=== PATIENT | male | born 1965 | race Caucasian/White ===

== ENCOUNTER 2019-01-20 07:37 | Emergency (ER) | payer SELFPAY ==
[2019-01-20] MEDS ORDERED: Ketorolac Tromethamine 60 MG/2 ML VIAL ONE (08:34)
--- NOTE | 2019-01-20 14:36 | RAD ---
THORACIC SPINE 3 VIEWS: DATE: 01/20/2019. FINDINGS: Anterior osteophytes are seen at most thoracic levels, most prominent as one travels inferiorly. No fracture or disk space narrowing was evident. The thoracolumbar junction is not seen optimally. IMPRESSION: Degenerative changes, but no acute findings. POS: HOME
== END 2019-01-20 08:42 | disposition home or self-care (01) ==
LOC: BURERS 07:37
DX: S20.229A Contusion of unspecified back wall of thorax, initial encounter (principal); M54.14 Radiculopathy, thoracic region; F17.290 Nicotine dependence, other tobacco product, uncomplicated; W17.89XA Other fall from one level to another, initial encounter
CPT/HCPCS: 72072; 96372; J1885

== ENCOUNTER 2019-03-01 09:25 | Emergency (ER) | payer OTHER | END 2019-03-01 09:45 | disposition home or self-care (01) | LOC: BURERS 09:25 | DX: M17.0 Bilateral primary osteoarthritis of knee (principal); I10 Essential (primary) hypertension; F17.290 Nicotine dependence, other tobacco product, uncomplicated; Z79.899 Other long term (current) drug therapy | CPT/HCPCS: 99283 ==

== ENCOUNTER 2019-03-08 13:39 | Emergency (ER) | payer OTHER ==
[2019-03-08] MEDS ORDERED: Ketorolac Tromethamine 30 MG/ML VIAL ONE (14:02)
== END 2019-03-08 14:13 | disposition home or self-care (01) ==
LOC: BURERS 13:39
DX: S39.012A Strain of muscle, fascia and tendon of lower back, initial encounter (principal); F17.290 Nicotine dependence, other tobacco product, uncomplicated; X50.9XXA Other and unspecified overexertion or strenuous movements or postures, initial encounter
CPT/HCPCS: 96372; 99283; J1885

== ENCOUNTER 2019-04-20 11:02 | Emergency (ER) | payer OTHER ==
[2019-04-20] MEDS ORDERED: methylPREDNISolone Sod Succ/PF 125 MG/2 ML VIAL ONE (11:43)
== END 2019-04-20 12:36 | disposition home or self-care (01) ==
LOC: BURERS 11:02
DX: S39.012A Strain of muscle, fascia and tendon of lower back, initial encounter (principal); M54.10 Radiculopathy, site unspecified; Z71.6 Tobacco abuse counseling; I10 Essential (primary) hypertension; F32.9 Major depressive disorder, single episode, unspecified; F17.290 Nicotine dependence, other tobacco product, uncomplicated; F17.210 Nicotine dependence, cigarettes, uncomplicated; X50.1XXA Overexertion from prolonged static or awkward postures, initial encounter; Y92.096 Garden or yard of other non-institutional residence as the place of occurrence of the external cause
CPT/HCPCS: 96372; 99406; J2930

== ENCOUNTER 2019-05-18 12:25 | Emergency (ER) | payer OTHER ==
[2019-05-18 13:04] LABS: Bilirubin Negative (Negative); Blood, Urine Trace (Negative); Clarity Clear (Clear); Glucose, Urine (Dipstick) Negative (Negative); Leukocyte Negative (Negative); Nitrite Negative (Negative); Protein, Urine (Dipstick) Negative (Neg-Trace); Urobilinogen 0.2 mg/dL (Less than 2)
[2019-05-18 13:07] LABS: Bacteria/HPF None Seen HPF (None Seen); Broad Cast None Seen LPF (None Seen); Calcium Oxalate Crystals None Seen HPF (None Seen); Cellular Cast None Seen LPF (None Seen); Epithelial Cast None Seen LPF (None Seen); Fatty Cast None Seen LPF (None Seen); Mucous/LPF None Seen LPF (<2+); Other Casts None Seen LPF (None Seen); Oval Fat Bodies/HPF None Seen HPF (None Seen); RBC/HPF 0-3 HPF (0-3); Red Blood Cell Cast None Seen LPF (None Seen); Renal Epithelial None Seen HPF (None Seen); Sperm/HPF None Seen HPF (None Seen); Squamous Epithelial None Seen HPF (0-3); Transitional Epithelial None Seen HPF (None Seen); Trichomonas/HPF None Seen HPF (None Seen); Triple Phosphate Crystal None Seen HPF (None Seen); Unclassified Crystals None Seen HPF (None Seen); WBC/HPF 0-3 HPF (0-3); Waxy Cast None Seen LPF (None Seen); White Blood Cell Cast None Seen LPF (None Seen); Yeast-Budding None Seen HPF (None Seen); Yeast-Hyphae None Seen HPF (None Seen)
[2019-05-18] MEDS ORDERED: Ketorolac Tromethamine 30 MG/ML VIAL ONE (13:08)
--- NOTE | 2019-05-18 14:46 | CT ---
CT ABDOMEN AND PELVIS WITHOUT CONTRAST: Date: 05/18/[address] of the abdomen and pelvis was done without oral or IV contrast by request to investigate ab dominal pain. FINDINGS: The lung bases are clear. The liver, spleen, pancreas, adrenal glands, kidneys, and abdominal aorta s how no acute findings within the limitations of a noncontrast study. The hepatic size seems minimally generous, but there was no abnormality seen within the liver. There is no sign of renal calculi, ure teral calculi, or hydronephrosis. There is no distention of any bowel. There is some equivocal thickening of the wall of the transverse colon. Mild colitis might be a possibility. The appendix was identified and appears normal. A rare d iverticulum is seen in the colon. There are no findings of diverticulitis, free air, or free fluid. CT of the pelvis shows no pelvic masses, fluid collections, or inflammatory changes. A fat-filled rig ht inguinal hernia was noted. IMPRESSION: Equivocal mild thickening of the transverse colon. Not mentioned above, but I would note the gallblad bryant is decompressed and hard to evaluate. Some slices made me wonder about tiny calcifications, but a n ultrasound would be needed to be sure. Findings discussed with Dr. Blankenship at 1357 hours on 05/18/2019. CODE CR. POS: HOME
== END 2019-05-18 14:22 | disposition home or self-care (01) ==
LOC: BURERS 12:25
DX: K52.9 Noninfective gastroenteritis and colitis, unspecified (principal); M54.5 Low back pain; I10 Essential (primary) hypertension; E78.5 Hyperlipidemia, unspecified; F32.9 Major depressive disorder, single episode, unspecified; F17.210 Nicotine dependence, cigarettes, uncomplicated
CPT/HCPCS: 74176; 81003; 81015; 87086; 96372; J1885

== ENCOUNTER 2019-06-17 10:01 | Emergency (ER) | payer OTHER ==
[2019-06-17] MEDS ORDERED: Adacel (T-DAP) 0.5 ML SYRINGE ONE (11:27)
--- NOTE | 2019-06-17 11:50 | RAD ---
LUMBAR SPINE 3 VIEWS: Date: 06/17/2019 No acute fracture was appreciated. The disc spaces are normal in height. Moderate degenerative change s are present throughout consisting of osteophytes and arthritic changes in some of the facet joints in the lower lumbar region. The SI joints are symmetrical. IMPRESSION: Degenerative change, but no acute finding. POS: HOME
--- NOTE | 2019-06-17 11:53 | RAD ---
RIGHT KNEE 4 VIEWS: Date: 06/17/2019 Medial joint space narrowing, osteophytes, and a bit of bony sclerosis is seen consistent with modera te osteoarthritis. There does appear to be a loose body in the joint seen based on the AP view adjace nt to the lateral femoral condyle. A small joint effusion is probably present. No fracture was eviden t. The patellofemoral joint showed advanced arthritic changes. IMPRESSION: Moderate osteoarthritis, but no fracture seen. POS: HOME
== END 2019-06-17 11:01 | disposition home or self-care (01) ==
LOC: BURERS 10:01
DX: S83.91XA Sprain of unspecified site of right knee, initial encounter (principal); I10 Essential (primary) hypertension; F32.9 Major depressive disorder, single episode, unspecified; F17.210 Nicotine dependence, cigarettes, uncomplicated; E78.5 Hyperlipidemia, unspecified; Z79.899 Other long term (current) drug therapy; W18.30XA Fall on same level, unspecified, initial encounter
CPT/HCPCS: 72100; 90715

== ENCOUNTER 2019-11-13 10:41 | Emergency (ER) | payer OTHER ==
[2019-11-13] MEDS ORDERED: Ketorolac Tromethamine 60 MG/2 ML VIAL ONE (11:13)
== END 2019-11-13 11:17 | disposition home or self-care (01) ==
LOC: BURERS 10:41
DX: M54.16 Radiculopathy, lumbar region (principal); I10 Essential (primary) hypertension; M19.90 Unspecified osteoarthritis, unspecified site; F32.9 Major depressive disorder, single episode, unspecified; F17.210 Nicotine dependence, cigarettes, uncomplicated; E78.5 Hyperlipidemia, unspecified; Z79.899 Other long term (current) drug therapy; X50.1XXA Overexertion from prolonged static or awkward postures, initial encounter
CPT/HCPCS: 96372; 99283; J1885

== ENCOUNTER 2020-01-16 12:55 | Emergency (ER) | payer OTHER ==
[2020-01-16] MEDS ORDERED: Ketorolac Tromethamine 30 MG/ML VIAL ONE (13:45)
[2020-01-16 13:51] LABS: #Basophils 0.1 thou/uL (0.0-0.2); #Lymphocytes 2.3 thou/uL (1.20-3.40); #Monocytes 0.9 thou/uL (0.11-0.59); %Basophils 0.6 % (0.0-1.0); %Eosinophils 0.2 % (0.0-10.0); %Lymphocytes 18.4 % (21.0-51.0); %Monocytes 7.5 % (0.0-10.0); %Neutrophils 73.3 % (42.0-75.0); Hemoglobin 16.8 g/dL (14.0-18.0); Mean Corpuscular HGB CONC 31.2 g/dL (32.0-36.0); Mean Corpuscular Hemoglobin 30.6 pg (27.0-31.0); Mean Corpuscular Volume 98.1 fL (78.0-98.0); Mean Platelet Volume 8.1 fL (7.4-10.4); Platelet Count 303 thou/uL (130-400); RBC Distribution Width 12.9 % (11.5-14.5); White Blood Cell (WBC) Count 12.2 thou/uL (4.8-10.8)
[2020-01-16 14:00] LABS: Bilirubin Negative (Negative); Blood, Urine Trace (Negative); Clarity Clear (Clear); Glucose, Urine (Dipstick) Negative (Negative); Ketone, Urine Negative (Negative); Leukocyte Negative (Negative); Nitrite Negative (Negative); Protein, Urine (Dipstick) Negative (Neg-Trace); Urobilinogen 0.2 mg/dL (Less than 2); pH, Urine 5.5 (5.0-9.0)
[2020-01-16 14:05] LABS: Bacteria/HPF Rare-Few HPF (None Seen); RBC/HPF 0-3 HPF (0-3); Squamous Epithelial None Seen HPF (0-3); WBC/HPF None Seen HPF (0-3)
[2020-01-16 14:15] LABS: BUN (Urea Nitrogen) 20 mg/dL (8.4-25.7); Calc. Creatinine Clearance 0 mL/min (70-130); Calcium 9.5 mg/dL (7.8-10.44); Carbon Dioxide 29 mmol/L (22-29); Chloride 96 mmol/L (98-107); Glucose 92 mg/dL (70-105); Potassium 3.9 mmol/L (3.5-5.1); Sodium 138 mmol/L (136-145)
[2020-01-16 14:16] LABS: ALT (SGPT) 29 U/L (8-55); AST (SGOT) 17 U/L (5-34); Albumin 4.7 g/dL (3.5-5.0); Alkaline Phosphatase 64 U/L (40-110); Bilirubin, Total 0.7 mg/dL (0.2-1.2); Globulin 4.2 g/dL (2.4-3.5); Protein, Total 8.9 g/dL (6.0-8.3)
[2020-01-16 14:17] LABS: Anion Gap 17 mmol/L (10-20)
--- NOTE | 2020-01-16 16:33 | CT ---
CT ABDOMEN AND PELVIS WITHOUT CONTRAST: Date: 01/16/2020 Comparison is made with the 05/18/2019 study. The lung bases are clear. The liver, spleen, pancreas, gallbladder, adrenal glands, kidneys, and abdominal aorta were unremarka ble in appearance within the limitations of a noncontrast study. The bowel shows no distention, wall thickening, or inflammatory change around it. The appendix appears normal. There is no free air or fr ee fluid present. A few scattered diverticula were present, but there was no signs of diverticulitis. CT of the pelvis shows no pelvic masses, fluid collections, or inflammatory changes. Mild to moderate degenerative changes are beginning in the facet joints of the lower lumbar spine. A fat-filled right inguinal hernia is present, which is probably of no current concern. IMPRESSION: No acute abdominal or pelvic findings. Preliminary report called to Teresa in the ER at 1400 hours on 01/16/2020. CODE CR. POS: HOME
== END 2020-01-16 14:50 | disposition home or self-care (01) ==
LOC: BURERS 12:55
DX: N50.812 Left testicular pain (principal); N50.811 Right testicular pain; I10 Essential (primary) hypertension; F32.9 Major depressive disorder, single episode, unspecified; F17.210 Nicotine dependence, cigarettes, uncomplicated; Z79.899 Other long term (current) drug therapy
CPT/HCPCS: 74176; 80053; 81003; 81015; 85025; 96374; 99406; J1885

== ENCOUNTER 2020-02-28 19:22 | Emergency (ER) | payer OTHER ==
[2020-03-01 09:11] LABS: SARS-CoV-2 MS2 Positive; SARS-CoV-2 N Gene Negative; SARS-CoV-2 S Gene Negative; SARS-CoV-2 by NAA Not Detected (NotDetected); SARS-CoV-2 orf1ab Negative
== END 2020-02-28 20:30 | disposition home or self-care (01) ==
LOC: BURERS 19:22
DX: Z20.822 Contact with and (suspected) exposure to COVID-19 (principal); Z79.899 Other long term (current) drug therapy; E78.5 Hyperlipidemia, unspecified; I10 Essential (primary) hypertension; F17.210 Nicotine dependence, cigarettes, uncomplicated
CPT/HCPCS: 87635; 99283; U0003

== ENCOUNTER 2020-03-18 12:47 | Emergency (ER) | payer OTHER ==
[2020-03-19 01:56] LABS: SARS-CoV-2 PCR by NAA Not Detected (NotDetected)
== END 2020-03-18 13:50 | disposition home or self-care (01) ==
LOC: BURERS 12:47
DX: B34.9 Viral infection, unspecified (principal); Z20.822 Contact with and (suspected) exposure to COVID-19; I10 Essential (primary) hypertension; M19.90 Unspecified osteoarthritis, unspecified site; F17.210 Nicotine dependence, cigarettes, uncomplicated; Z79.899 Other long term (current) drug therapy
CPT/HCPCS: 87635; 99283; U0003; U0005

== ENCOUNTER 2020-05-03 11:58 | Emergency (ER) | payer OTHER, SELFPAY ==
[2020-05-03] MEDS ORDERED: Ketorolac Tromethamine 60 MG/2 ML VIAL ONE (12:22)
== END 2020-05-03 12:28 | disposition home or self-care (01) ==
LOC: BURERS 11:58
DX: M54.16 Radiculopathy, lumbar region (principal); I10 Essential (primary) hypertension; F17.210 Nicotine dependence, cigarettes, uncomplicated
CPT/HCPCS: 96372; 99283; J1885

== ENCOUNTER 2020-06-15 14:55 | Emergency (ER) | payer OTHER | END 2020-06-15 15:10 | disposition home or self-care (01) | LOC: BURERS 14:55 | DX: M54.5 Low back pain (principal); I10 Essential (primary) hypertension; F17.210 Nicotine dependence, cigarettes, uncomplicated | CPT/HCPCS: 99281 ==

== ENCOUNTER 2020-08-13 12:35 | Emergency (ER) | payer OTHER ==
[2020-08-13] MEDS ORDERED: Ketorolac Tromethamine 60 MG/2 ML VIAL ONE (13:10)
== END 2020-08-13 13:43 | disposition home or self-care (01) ==
LOC: BURERS 12:35
DX: M51.36 Other intervertebral disc degeneration, lumbar region (principal); M51.26 Other intervertebral disc displacement, lumbar region; I10 Essential (primary) hypertension; F17.210 Nicotine dependence, cigarettes, uncomplicated; Z71.6 Tobacco abuse counseling
CPT/HCPCS: 72131; 96372; 99406; J1885

== ENCOUNTER 2021-02-28 13:08 | Emergency (ER) | payer OTHER ==
[2021-02-28] MEDS ORDERED: Ketorolac Tromethamine 30 MG/ML VIAL ONE (13:57)
== END 2021-02-28 14:40 | disposition home or self-care (01) ==
LOC: BURERS 13:08
DX: S46.002A Unspecified injury of muscle(s) and tendon(s) of the rotator cuff of left shoulder, initial encounter (principal); I10 Essential (primary) hypertension; F17.210 Nicotine dependence, cigarettes, uncomplicated; Z79.899 Other long term (current) drug therapy; W01.0XXA Fall on same level from slipping, tripping and stumbling without subsequent striking against object, initial encounter
CPT/HCPCS: 96372; J1885

== ENCOUNTER 2021-04-18 16:25 | Emergency (ER) | payer OTHER ==
[2021-04-18] MEDS ORDERED: predniSONE 20 MG TAB ONE (17:00)
[2021-04-19 23:42] LABS: SARS-CoV-2 PCR by NAA Not Detected (NotDetected)
== END 2021-04-18 17:42 | disposition home or self-care (01) ==
LOC: BURERS 16:25
DX: J44.1 Chronic obstructive pulmonary disease with (acute) exacerbation (principal); I10 Essential (primary) hypertension; F17.210 Nicotine dependence, cigarettes, uncomplicated; Z20.822 Contact with and (suspected) exposure to COVID-19
CPT/HCPCS: 99284; J7512; U0003; U0005

== ENCOUNTER 2021-04-27 14:46 | Emergency (ER) | payer OTHER ==
[2021-04-28 01:00] LABS: SARS-CoV-2 PCR by NAA Not Detected (NotDetected)
== END 2021-04-27 15:50 | disposition home or self-care (01) ==
LOC: BURERS 14:46
DX: R05.9 Cough, unspecified (principal); I10 Essential (primary) hypertension; F17.210 Nicotine dependence, cigarettes, uncomplicated; Z20.822 Contact with and (suspected) exposure to COVID-19
CPT/HCPCS: 99283; U0003; U0005

== ENCOUNTER 2021-06-04 15:15 | Emergency (ER) | payer OTHER ==
[2021-06-04 15:50] LABS: Bilirubin Negative (Negative); Blood, Urine Negative (Negative); Clarity Clear (Clear); Glucose, Urine (Dipstick) Negative (Negative); Ketone, Urine Negative (Negative); Leukocyte Negative (Negative); Nitrite Negative (Negative); Protein, Urine (Dipstick) Trace mg/dL (Neg-Trace); pH, Urine 8.5 (5.0-9.0)
[2021-06-04] MEDS ORDERED: Ibuprofen 800 MG TAB ONE (16:17)
[2021-06-04 16:21] LABS: #Basophils 0.1 thou/uL (0.0-0.2); #Eosinphils 0.1 thou/uL (0.0-0.7); #Monocytes 0.8 thou/uL (0.11-0.59); #Neutrophils 8.5 thou/uL (1.40-6.50); %Basophils 0.7 % (0.0-1.0); %Lymphocytes 17.4 % (21.0-51.0); %Monocytes 6.9 % (0.0-10.0); Hemoglobin 15.1 g/dL (14.0-18.0); Mean Corpuscular HGB CONC 30.9 g/dL (32.0-36.0); Mean Corpuscular Hemoglobin 31.1 pg (27.0-31.0); Mean Platelet Volume 7.7 fL (7.4-10.4); Platelet Count 249 thou/uL (130-400); RBC Distribution Width 14.6 % (11.5-14.5); Red Blood Cell (RBC) Count 4.85 mill/uL (4.70-6.10); White Blood Cell (WBC) Count 11.5 thou/uL (4.8-10.8)
[2021-06-04 16:39] LABS: ALT (SGPT) 43 U/L (8-55); AST (SGOT) 17 U/L (5-34); Albumin 4.1 g/dL (3.5-5.0); Alkaline Phosphatase 75 U/L (40-110); Anion Gap 16 mmol/L (10-20); BUN (Urea Nitrogen) 14 mg/dL (8.4-25.7); Bilirubin, Total 0.5 mg/dL (0.2-1.2); CK (CPK) 178 U/L (30-200); Calc. Creatinine Clearance 0 mL/min (70-130); Calcium 9.7 mg/dL (7.8-10.44); Carbon Dioxide 33 mmol/L (22-29); Chloride 96 mmol/L (98-107); Globulin 3.6 g/dL (2.4-3.5); Glucose 98 mg/dL (70-105); Potassium 4.4 mmol/L (3.5-5.1); Protein, Total 7.7 g/dL (6.0-8.3); Sodium 141 mmol/L (136-145)
== END 2021-06-04 17:26 | disposition home or self-care (01) ==
LOC: BURERS 15:15
DX: J44.1 Chronic obstructive pulmonary disease with (acute) exacerbation (principal); I10 Essential (primary) hypertension; F17.210 Nicotine dependence, cigarettes, uncomplicated
CPT/HCPCS: 36415; 71045; 80053; 81003; 82550; 83605; 85025; 86140; 87804

== ENCOUNTER 2022-01-20 20:13 | Emergency (ER) | payer OTHER ==
[2022-01-20] MEDS ORDERED: Magnesium 2 GM/50 ML BAG (IN WATER) ONE (20:37)
[2022-01-20] MEDS ORDERED: methylPREDNISolone Sod Succ/PF 125 MG/2 ML VIAL ONE (20:49)
[2022-01-20 21:09] LABS: #Basophils 0.2 thou/uL (0.0-0.2); #Eosinphils 0.2 thou/uL (0.0-0.7); #Lymphocytes 1.7 thou/uL (1.20-3.40); #Monocytes 0.8 thou/uL (0.11-0.59); #Neutrophils 8.2 thou/uL (1.40-6.50); %Basophils 1.6 % (0.0-1.0); %Eosinophils 1.6 % (0.0-10.0); %Lymphocytes 15.7 % (21.0-51.0); %Monocytes 7.5 % (0.0-10.0); %Neutrophils 73.6 % (42.0-75.0); Hemoglobin 15.8 g/dL (14.0-18.0); Mean Corpuscular HGB CONC 31.3 g/dL (32.0-36.0); Mean Corpuscular Hemoglobin 29.8 pg (27.0-31.0); Mean Corpuscular Volume 95.4 fl (78.0-98.0); Mean Platelet Volume 7.4 fL (7.4-10.4); Platelet Count 305 10x3/uL (130-400); RBC Distribution Width 15.4 % (11.5-14.5); Red Blood Cell (RBC) Count 5.29 mill/uL (4.70-6.10); White Blood Cell (WBC) Count 11.1 10x3/uL (4.8-10.8)
[2022-01-20 21:20] LABS: ALT (SGPT) 23 U/L (8-55); AST (SGOT) 19 U/L (5-34); Alkaline Phosphatase 75 U/L (40-110); Anion Gap 14 mmol/L (10-20); BUN (Urea Nitrogen) 17 mg/dL (8.4-25.7); Bilirubin, Total 0.5 mg/dL (0.2-1.2); Calc. Creatinine Clearance 0 mL/min (70-130); Calcium 9.3 mg/dL (7.8-10.44); Carbon Dioxide 39 mmol/L (22-29); Estimated GFR 81; Globulin 3.2 g/dL (2.4-3.5); Glucose 122 mg/dL (70-105); Protein, Total 7.2 g/dL (6.0-8.3)
[2022-01-20 21:24] LABS: Chloride 91 mmol/L (98-107); Potassium 5.4 mmol/L (3.5-5.1); Sodium 137 mmol/L (136-145)
[2022-01-20 21:30] LABS: Base Excess-Venous 7.1 mmol/L (-2.0 to 3.0); Bicarbonate (HCO3v) 40.4 mmol/L (22.0-28.0); CO2 Tension (PvCO2) 94.7 mmHg (42.0-51.0); Calcium, Ionized 1.18 mmol/L (1.15-1.33); Chloride 90 mmol/L (98-107); Hemoglobin - Calc 19.6 g/dL (14.0-18.0); Potassium 5.1 mmol/L (3.5-5.1); Sodium 138 mmol/L (138-145); T. Carbon Dioxide 43.3 mmol/L (22.0-28.0); vO2 Saturation-calc 93.9 % (60.0-85.0)
[2022-01-20] MEDS ORDERED: cefTRIAXone\\ROCEPHIN 2 GM VIAL ONE (21:38)
[2022-01-20] MEDS ORDERED: Albuterol Sulfate 2.5 mg/0.5 ml Neb ONE ×2 (21:38→23:03)
[2022-01-20] MEDS ORDERED: Sodium Chloride 0.9% 100 ML ONE (21:38)
[2022-01-20 22:06] LABS: SARS-CoV-2 NAA Rapid Test Not Detected (NotDetected)
[2022-01-20] MEDS ORDERED: Lorazepam 2 MG/ML VIAL ONE ×2 (22:15→23:42)
[2022-01-20] MEDS ORDERED: Rocuronium Bromide 10 MG/ML (10ML VIAL) ONE (23:42)
[2022-01-20] MEDS ORDERED: Ketamine 50 MG/ML (10ML VIAL) ONE (23:42)
[2022-01-20 23:44] LABS: Base Excess-Venous 0.7 mmol/L (-2.0 to 3.0); CO2 Tension (PvCO2) 78.2 mmHg (42.0-51.0); Calcium, Ionized 1.03 mmol/L (1.15-1.33); Chloride 94 mmol/L (98-107); Hemoglobin - Calc 18.6 g/dL (14.0-18.0); Potassium 5.7 mmol/L (3.5-5.1); Sodium 134 mmol/L (138-145); T. Carbon Dioxide 34.4 mmol/L (22.0-28.0); vO2 Saturation-calc 94.5 % (60.0-85.0)
[2022-01-21 03:56] LABS: Actual Bicarbonate (HCO3a) 31.9 mEq/L (22-28); Base Excess (BEa) 0.8 mEq/L (-2.0 to +3.0); Carboxyhemoglobin (COHb) 2.5 gm% (0.0-3.0); Hemoglobin (Hb) 14.8 g/dL (14.0-18.0); O2 Tension (PaO2), arterial 105.6 mmHg (80.0-100.0); Potassium - ABG Lab 4.09 mmol/L (3.70-5.30)
[2022-01-21 03:57] LABS: pH, Arterial 7.19 (7.35-7.45)
[2022-01-21 03:58] LABS: ALV-art Gradient 500.025 mmHg (0-20); CO2 Tension 85.9 mmHg (35.0-45.0); Puncture Site RRA
== END 2022-01-21 01:20 | disposition short-term general hospital (02) ==
LOC: BURERS 20:13
DX: J44.1 Chronic obstructive pulmonary disease with (acute) exacerbation (principal); J96.90 Respiratory failure, unspecified, unspecified whether with hypoxia or hypercapnia; I10 Essential (primary) hypertension; F17.210 Nicotine dependence, cigarettes, uncomplicated; Z20.822 Contact with and (suspected) exposure to COVID-19
CPT/HCPCS: 31500; 36600; 71045; 80053; 82330; 82435; 82803; 82805; 83605; 83880; 84132; 84295; 84484; 85014; 85025; 87040; 93005; 94640; 94760; 96374; 96375; 96376; J0696; J2060; J2930; J3475; J3490; J7611; J7620

== ENCOUNTER 2025-01-09 12:28 | Emergency (ER) | payer OTHER ==
[2025-01-09] MEDS ORDERED: cefTRIAXone (ROCEPHIN) 1 GM VIAL ONE (12:46)
[2025-01-09] MEDS ORDERED: Lidocaine 1% PF 5 ML VIAL ONE (12:46)
[2025-01-09] MEDS ORDERED: Ibuprofen 800 MG TAB ONE (12:54)
== END 2025-01-09 12:55 | disposition home or self-care (01) ==
LOC: BURERS 12:28
DX: H01.9 Unspecified inflammation of eyelid (principal); K04.7 Periapical abscess without sinus; J44.9 Chronic obstructive pulmonary disease, unspecified; I10 Essential (primary) hypertension; F17.210 Nicotine dependence, cigarettes, uncomplicated
CPT/HCPCS: 96372; 99283; J0696